=== PATIENT | female | born 1965 | race Caucasian/White ===

== ENCOUNTER 2018-01-12 08:33 | Day surgery (SDC) | payer MEDICAID ==
--- NOTE | ~2018-01-12 | HP ---
PATIENT: ABIGAIL PRASAD MEDICAL RECORD: [id number] ACCOUNT: [id number] LOCATION:D.OPS : 65 ADMISSION DATE: 01/12/18 HISTORY AND PHYSICAL EXAMINATION HISTORY OF PRESENT ILLNESS: Abigail is 52. She has been having problems with her ear as well as sinusitis and nasopharyngeal mass. She is being admitted for bilateral middle meatal antroscopy, biopsy of the nasopharynx, and right myringotomy with tube. PAST MEDICAL HISTORY: Includes hypertension and reflux. CURRENT MEDICATIONS: Include citalopram, tramadol, fluticasone, tizanidine, losartan, metoprolol, hydrocodone, and indomethacin. PHYSICAL EXAMINATION: GENERAL: She is healthy-appearing. EYES: Sclerae and conjunctivae are normal. EARS: Left ear is normal. The right TM is intact, retracted with a serous effusion. NOSE: Anteriorly nasal cavity and turbinates are normal. On nasal pharyngoscopy, there was a granular fullness obscuring the right fossa of Rosenmuller originating posteriorly. ORAL CAVITY AND OROPHARYNX: Tongue protrudes in the midline. Palate is normal. NECK: No masses, no adenopathy. NEUROLOGIC: Cranial nerves are normal. IMPRESSION: Right chronic serous otitis media, chronic maxillary sinusitis, worse on the left side, nasopharyngeal mass. PLAN: Bilateral medial antrostomy, right myringotomy with tubes, and biopsy of the nasopharynx. TRANSINT:[id number] Voice Confirmation ID: [id number] DOCUMENT ID: [id number] SUDEEP SHAH MD at 1711 CC: [id number] DICTATION DATE: 01/09/18 0954 GROCERY ASSOCIATE: 01/09/18 1041 [facility] 01/12/18 [facility] [address] [place] [id number]
[2018-01-12 09:26] LABS: HEMATOCRIT 37.8 % (36.0-48.0); HEMOGLOBIN 12.6 g/dL (12-16); MCH 31.9 pg (26.0-34.0); MCHC 33.3 g/dL (31.0-37.0); MCV 95.7 fL (80.0-100.0); MEAN PLATELET VOLUME 10.3 fL (7.4-10.4); RBC 3.95 10x6/uL (4.00-5.40); RDW 12.5 % (11.5-14.5); WBC 6.4 10x3/uL (4.8-10.8)
[2018-01-12] MEDS ORDERED: FLUTICASONE PRO16 GM NASAL (11:33)
[2018-01-12] MEDS ORDERED: ULTRAM50 MG PO (11:33)
[2018-01-12] MEDS ORDERED: METOPROLOL TART50 MG PO (11:33)
[2018-01-12] MEDS ORDERED: PROAIR HFA8.5 GM INH (11:34)
[2018-01-12] MEDS ORDERED: MIDRIN1 CA1 PO (11:36)
[2018-01-12] MEDS ORDERED: LUNESTA3 MG PO (11:36)
[2018-01-12] MEDS ORDERED: HYDROCO/APAP TAB 10- PO (11:37)
[2018-01-12] MEDS ORDERED: NEURONTIN 300300 MG PO (11:38)
[2018-01-12] MEDS ORDERED: PROTONIX40 MG PO (11:38)
[2018-01-12] MEDS ORDERED: CELEXA20 MG PO (11:38)
[2018-01-12] MEDS ORDERED: LOSARTAN POT TAB 100 PO (11:39)
[2018-01-12] MEDS ORDERED: QUESTRAN LIG1 PACKET PO (11:40)
[2018-01-12] MEDS ORDERED: ZANAFLEX4 MG PO (11:40)
[2018-01-12 11:59] LABS: HCG SERUM NEGATIVE (NEGATIVE)
== END 2018-01-12 11:55 | disposition home or self-care (01) ==
LOC: D.OPS 08:33
PROVIDERS: Anesthesiology
DX: J34.89 Other specified disorders of nose and nasal sinuses (principal); J32.0 Chronic maxillary sinusitis; K21.9 Gastro-esophageal reflux disease without esophagitis; I10 Essential (primary) hypertension; Z53.8 Procedure and treatment not carried out for other reasons; H65.21 Chronic serous otitis media, right ear

== ENCOUNTER 2018-02-16 07:21 | Day surgery (SDC) | payer MEDICAID ==
[~2018-02-16] VITALS: Ht 165.1 cm; Wt 103.4 kg
--- NOTE | ~2018-02-16 | HP ---
PATIENT: DANIELLE PRASAD MEDICAL RECORD: [id number] ACCOUNT: [id number] LOCATION:[facility] : 65 ADMISSION DATE: 02/16/18 PCP: JIGNESH HAM HISTORY AND PHYSICAL EXAMINATION HISTORY: Danielle is a 52-year-old female who is having some sinus problems and nasal pharyngeal mass. I had her set up for surgery previously last month. She failed her stress test and was evaluated and treated by cardiology, now she is back on the schedule for sinus surgery, right myringotomy and tube, and biopsy of nasopharynx. PAST MEDICAL HISTORY: Includes hypertension, reflux. CURRENT MEDICATIONS: Include citalopram, tramadol, fluticasone, tizanidine, losartan, metoprolol, indomethacin. ALLERGIES: ASPIRIN and PENICILLIN she lists. PHYSICAL EXAMINATION: GENERAL: She is healthy appearing. EYES: Conjunctivae normal. EARS: Left ear is normal. The right TM is intact with an effusion. NOSE: No masses, polyps or drainage. On nasal endoscopy, granular fullness in the right fossa of Rosenmuller. ORAL CAVITY AND OROPHARYNX: Normal palate and pharynx is symmetric. NECK: No masses, no adenopathy. CHEST: Clear. CARDIOVASCULAR: Regular rate and rhythm, no murmur. EXTREMITIES: Normal. IMPRESSION: Right chronic serous otitis media, chronic sinusitis actually worse on the opposite side from the ear problem and the nasal pharyngeal mass. PLAN: Bilateral middle meatal antrostomy, right myringotomy with tube and biopsy of the nasopharynx. TRANSINT:[id number] Voice Confirmation ID: [id number] DOCUMENT ID: [id number] SUDEEP SHAH MD at 1731 CC: [id number] DICTATION DATE: 02/12/18 1416 WORM FARMER: 02/12/18 1426 [facility] 02/16/18 [place] [address]
--- NOTE | ~2018-02-16 | OP ---
PATIENT NAME: DANIELLE PRASAD MEDICAL RECORD: [id number] :65 [facility] ADMISS[facility] DATE: SURGEON: AVTAR WRIGHT MD DATE OF OPERATION: 02/16/2018 PREOPERATIVE DIAGNOSES: 1. Right-sided eustachian tube dysfunction. 2. Nasopharyngeal mass. 3. Chronic maxillary sinusitis. PROCEDURES: 1. Bilateral middle meatal antrostomies, endoscopic. 2. Biopsy of the nasopharynx. 3. Right myringotomy and tube. SURGEON: Avtar Wright MD ANESTHESIA: General. SPECIMENS: Biopsies of the nasopharynx. TUBES: Serra tube in the right ear. NASAL PACKING: None. COMPLICATIONS: None. DISPOSITION: Recovery stable. DESCRIPTION OF PROCEDURE: She was brought to the operating room, placed in supine position, sedated and intubated by anesthesia. The nose was examined. She had been sprayed with Afrin preoperatively. The uncinate, middle turbinate were injected bilaterally with a total of less than 1 cc of 1% lidocaine with 1:100,000 epinephrine and 2 Afrin pledgets were placed in each side of the nose. She was positioned, prepped and draped in the usual fashion. Then, a 0-degree scope was inserted in the nose. All the Afrin pledgets were removed, the right side was addressed first. The inferior turbinate was normal, middle turbinate was normal. The septum and floor of the nose was normal. Nasal vault was normal. She had a mass consistent with bulging more prominent than adenoid tissue and the nasopharynx was friable, erythematous. Multiple biopsies were taken basically removing all of the tissue, which was lymphoid in its consistency with 4 mm cut forceps through the nose using the 0-degree scope. Basically, a dozen or more biopsies were taken until there was really no more mass there. Suction cautery was used to stop little bit of bleeding, although really was not much. Eustachian tube orifices and rest of the nasopharynx looked normal. This was posteriorly based, fairly midline, maybe a little bit more to the right side. Once that was completed, the right middle turbinate was medialized laterally with a freer. A curved olive tip suction was inserted into the maxillary sinus and a backbiter was used to enlarge the ostia. A curved olive tip suction was used to suction out the sinus. There really was not much in there and the 30-degree scope was used to look in the sinus. The mucosa looked normal. Then, the left side was addressed, same thing. The middle turbinate was medialized with the freer. Rest of the nasal exam on that side was normal. Then, there was no visible ostia. It was entered with a curved olive tip suction and then a Luki trap was used to trap the suction from the OPERATIVE REPORT [id number] DANIELLE PRASAD sinus to send for cultures. A back biting forcep was used to open up the ostia and it was rinsed repeatedly with 30 cc syringe with saline and the large curved olive tip suction irrigated and suctioned as was the nasopharynx. Once that was completed, both the inferior turbinates were outfractured with a Boies elevator. The nasopharynx was suctioned. There was no significant bleeding. Then the scope was removed. She was repositioned to examine the ear. Using a microscope, speculum, the ear was examined. There was no cerumen. A radial anterior inferior myringotomy was made. Serous fluid was suctioned and a Serra tube was placed followed by Floxin drops and a cotton ball. She was awakened, extubated, transported to recovery in good condition. No complications. TRANSINT:[id number] Voice Confirmation ID: [id number] DOCUMENT ID: [id number] AVTAR WRIGHT MD at 1731 CC: [id number] DICTATION DATE: 02/16/18 1328 TELEGRAPHIC TYPEWRITER MECHANIC: 02/16/18 1357 [facility] 02/16/18 [facility] [address] [place] [address]
[~2018-02-16 07:21] MED LIST: CELEXA20 MG PO; FLUTICASONE PRO16 GM NASAL; HYDROCO/APAP TAB 10- PO; LOSARTAN POT TAB 100 PO; LUNESTA3 MG PO; METOPROLOL TART50 MG PO; MIDRIN1 CA1 PO; NEURONTIN 300300 MG PO; PROAIR HFA8.5 GM INH; PROTONIX40 MG PO; QUESTRAN LIG1 PACKET PO; ULTRAM50 MG PO; ZANAFLEX4 MG PO
[2018-02-16 07:40] LABS: MCH 32.7 pg (26.0-34.0); MCHC 34.2 g/dL (31.0-37.0); MCV 95.5 fL (80.0-100.0); MEAN PLATELET VOLUME 9.9 fL (7.4-10.4); RBC 3.98 10x6/uL (4.00-5.40); RDW 12.6 % (11.5-14.5); WBC 7.4 10x3/uL (4.8-10.8)
[2018-02-16] MEDS ORDERED: LIPITOR40 MG PO (08:21)
[2018-02-16 08:22] VITALS: BP 146/98; Ht 165.1 cm; Wt 103.4 kg
== END 2018-02-16 15:31 | disposition home or self-care (01) ==
LOC: D.OPS 07:21 → D.PAN 09:15 → D.OPS 09:30 → D.PAN 09:40 → D.OPS 10:00 → D.PAN 10:25 → D.OPS 15:31
PROVIDERS: Anesthesiology
DX: H69.91 Unspecified Eustachian tube disorder, right ear (principal); H65.21 Chronic serous otitis media, right ear; R22.9 Localized swelling, mass and lump, unspecified; J34.89 Other specified disorders of nose and nasal sinuses; J32.0 Chronic maxillary sinusitis; I10 Essential (primary) hypertension; K21.9 Gastro-esophageal reflux disease without esophagitis; Z79.891 Long term (current) use of opiate analgesic; Z79.899 Other long term (current) drug therapy; Z88.0 Allergy status to penicillin; Z01.812 Encounter for preprocedural laboratory examination